=== PATIENT | female | born 1950 | race Caucasian/White ===

== ENCOUNTER 2021-01-04 21:18 | Inpatient (IN) ==
[2021-01-04] MEDS ORDERED: DEXAMETHASONE 10 MG/ML VIAL IV ONE (21:29)
[2021-01-04 22:58] LABS: ABG Methemoglobin 0.3 % (0.4-1.5); Total Hemoglobin 11.9 gm/Dl (13.5-16.5); VBG Base Excess 1 (-2-3); VBG HCO3 23.8 mmol/L; VBG Oxygen Saturation 82.8 %; VBG PH 7.46 U; VBG PO2 54.8 mmHg; VBG Total CO2 24.8 mmol/L
[2021-01-04 23:13] LABS: Basophils # (Auto) 0.07 K/mcL (0.00-0.20); Basophils % (Auto) 0.7 % (0.0-2.0); Eosinophils # (Auto) 0.01 K/mcL (0.00-0.70); Eosinophils % (Auto) 0.1 % (0.0-7.0); Hematocrit 38.9 % (36.0-48.0); Hemoglobin 13.3 g/dL (12.0-15.0); Lymphocytes # (Auto) 1.19 K/mcL (1.50-4.80); Lymphocytes % (Auto) 12.4 % (15.0-49.0); Mean Cell Volume 82.2 fL (80.0-100.0); Mean Corpuscular HGB Conc 34.2 g/dL (31.0-36.0); Mean Platelet Volume 10.5 fL (7.4-10.4); Monocytes # (Auto) 0.46 K/mcL (0.10-0.90); Monocytes % (Auto) 4.8 % (1.0-12.0); Platelet Count 199 K/mcL (140-440); RBC 4.73 M/mcL (4.00-5.20); Red Cell Distribution Width 14.1 % (11.5-14.5); WBC 9.6 K/mcL (4.5-11.0)
[2021-01-04] MEDS ORDERED: MAGNESIUM SULFATE 2 GM/50 ML BAG IV PRN (23:28)
[2021-01-04] MEDS ORDERED: ONDANSETRON 4 MG ODT TABLET SL PRN (23:28)
[2021-01-04] MEDS ORDERED: MELATONIN 3 MG TABLET PO PRN (23:28)
[2021-01-04] MEDS ORDERED: REMDESIVIR 200 MG in 0.9 % SODIUM CHLORIDE 250 ML IV ONE (23:28)
[2021-01-04] MEDS ORDERED: ONDANSETRON 4 MG/2 ML VIAL IV PRN (23:28)
[2021-01-04] MEDS ORDERED: POTASSIUM CHLORIDE 20 MEQ PACKET PO PRN (23:28)
[2021-01-04] MEDS ORDERED: ACETAMINOPHEN 325 MG TABLET PO PRN (23:28)
[2021-01-04] MEDS ORDERED: POLYETHYLENE GLYCOL 3350 17 GM PACKET PO PRN (23:28)
[2021-01-04] MEDS ORDERED: POTASSIUM CHLORIDE 40 MEQ in DEXTROSE 5% IN WATER 500 ML IV PRN (23:28)
[2021-01-04] MEDS ORDERED: BISACODYL 10 MG SUPP.RECT PR PRN (23:28)
--- NOTE | 2021-01-04 23:33 | Internal Med History&Physical ---
HPI History of Present Illness Patient information: Note initiated : 01/04/21 at 11:33 pm Service Date, if different from initiated Date: [] Patient: Francisca Samuel a 70 y/o F admitted on for short of breath weakness. Chief Complaint: Shortness of breath History of present illness: Ms. Samuel is a 70 year old F with history anxiety disorder/DJD/HLD who was diagnosed with Covid a week and a half ago. She continues to deteriorate with increasing exertional dyspnea progressing to dyspnea at rest. She presents to the ER for evaluation initial work-up was consistent with saturation in 30s. Patient was probably started on noninvasive ventilation. Chest imaging consistent with bilateral multifocal infiltrates consistent with Covid pneumonia. Patient was started on remdesivir/dexamethasone and subsequently hospitalist service was consulted. In light of critical nature of illness ICU bed was secured. At the time of my evaluation patient is on BiPAP 100% FiO2. Breathing at 25 pressure settings 16/ 8. She denies history of Covid vaccination. She endorses to fever, fatigue, malaise, weakness and loss of appetite but denies chest pain, vomiting abdominal pain diarrhea. Review of systems 10 point review system was performed and is negative except for 1 discussed above PFSH PFSH All Active Problems Hypoxia (Acute) COVID-19 (Acute) EIC (epidermal inclusion cyst) (Chronic) Hyperlipidemia (Chronic) Hypothyroid (Chronic) Osteoporosis (Chronic) Hyperplastic colon polyp (Chronic) GERD (gastroesophageal reflux disease) (Chronic) Depression with anxiety (Chronic) Multiple sclerosis (Chronic) Medical History Actinic keratosis Depression with anxiety GERD (gastroesophageal reflux disease) Hyperlipidemia Hyperlipidemia Hyperplastic colon polyp 2012 colonoscopy Hypothyroid Hypothyroidism (acquired) Multiple sclerosis Multiple sclerosis Osteoporosis on fosamax, last DEXA 2016 Surgical History No pertinent past surgical history Family History Mother Malignant neoplasm of breast Father Family history of Hodgkin's lymphoma Diabetes mellitus Lymphoma Other Malignant neoplasm of colon Social History (Updated 02/18/18 @ 10:25 by Sabino Johnston MD) 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 Home Medications and Allergies Home Medications Medication Instructions Recorded Confirmed Type cholecalciferol (vitamin D3) 50 2,000 unit PO BID #180 cap 09/23/16 01/05/21 Rx mcg (2,000 unit) capsule alendronate 70 mg tablet 70 mg PO QWEEK #12 tab 12/04/17 01/05/21 Rx levothyroxine 75 mcg tablet 75 mcg PO QDAY #90 tab 12/04/17 01/05/21 Rx omeprazole 20 mg capsule,delayed 20 mg PO QDAY #90 cap 12/04/17 01/05/21 Rx release venlafaxine 75 mg tablet 75 mg PO QDAY #90 tab 12/17/17 01/05/21 Rx atorvastatin 80 mg PO QDAY 01/05/21 01/05/21 History hydrocodone-chlorpheniramine 5 ml PO BID 01/05/21 01/05/21 History Allergies Allergy/AdvReac Type Severity Reaction Status Date / Time No Known Drug Allergies Allergy Verified 01/05/21 00:53 EXAM Constitutional Vitals: Temp Pulse Resp BP Pulse Ox 97.1 F 79 25 H 135/82 93 01/04/21 21:20 01/04/21 23:11 01/04/21 23:11 01/04/21 23:01 01/04/21 23:11 Anxious labored on BiPAP Head normocephalic Oral cavity moist No ear nose discharge Eye movement symmetrical Neck supple no lymphadenopathy S1-S2 regular Tachypneic Nondistended nontender abdomen Lower extremity no cyanosis clubbing or joint swelling Skin no suspicious lesion Psych anxious, no hallucination Neuro normal higher function DATA Data Completed and Pending Labs: Labs from last 24 hours 01/04/21 01/04/21 01/04/21 22:40 21:51 21:31 WBC RBC Hgb Hct MCV MCH MCHC RDW Plt Count MPV Neut % (Auto) Lymph % (Auto) [place] % (Auto) Eos % (Auto) Baso % (Auto) Lymph # (Auto) [place] # (Auto) Eos # (Auto) Baso # (Auto) Absolute Neutrophils PT TNP INR TNP APTT TNP ABG Methemoglobin 0.3 L VBG pH 7.46 VBG pCO2 34.0 VBG pO2 54.8 VBG HCO3 23.8 VBG Total CO2 24.8 VBG O2 Saturation 82.8 VBG Base Excess 1 VBG Lactic Acid 1.1 Carboxyhemoglobin 4.7 H Total Hemoglobin 11.9 L Sodium Potassium Chloride Carbon Dioxide Anion Gap BUN Creatinine GFR Calculation Glucose Calcium Total Bilirubin AST ALT Alkaline Phosphatase Total Protein Albumin Globulin Albumin/Globulin Ratio 01/04/21 01/04/21 21:31 21:31 WBC 9.6 RBC 4.73 Hgb 13.3 Hct 38.9 MCV 82.2 MCH 28.1 MCHC 34.2 RDW 14.1 Plt Count 199 MPV 10.5 H Neut % (Auto) 82.0 H Lymph % (Auto) 12.4 L [place] % (Auto) 4.8 Eos % (Auto) 0.1 Baso % (Auto) 0.7 Lymph # (Auto) 1.19 L [place] # (Auto) 0.46 Eos # (Auto) 0.01 Baso # (Auto) 0.07 Absolute Neutrophils 7.87 PT INR APTT ABG Methemoglobin VBG pH VBG pCO2 VBG pO2 VBG HCO3 VBG Total CO2 VBG O2 Saturation VBG Base Excess VBG Lactic Acid Carboxyhemoglobin Total Hemoglobin Sodium Pending Potassium Pending Chloride Pending Carbon Dioxide Pending Anion Gap Pending BUN Pending Creatinine Pending GFR Calculation Pending Glucose Pending Calcium Pending Total Bilirubin Pending AST Pending ALT Pending Alkaline Phosphatase Pending Total Protein Pending Albumin Pending Globulin Pending Albumin/Globulin Ratio Pending A/P Narrative A/P Narrative: * COVID-19 bilateral multifocal pneumonia-transfer to ICU , [place] 2 score 18 mandating ICU admission/initiate remdesivir/dexamethasone, empiric antibiotic, thrombosis prophylaxis/coag and inflammatory markers, maintain COVID-19 precautions. Initiate prone ventilation * Acute hypoxic respiratory failure secondary to Covid pneumonia. Continue noninvasive mechanical ventilation and intubate if continues to deteriorate. Serial chest imaging/ABG/inflammatory markers * HLD * Hypothyroid * Anxiety disorder * Prophylaxis twice daily Lovenox Plan * Inpatient ICU admission * Noninvasive mechanical ventilation * Serial imaging/ABG/coag inflammatory markers * Remdesivir/dexamethasone/empiric antibiotics/thrombosis prophylaxis * Interleukin-6 levels * Interleukin-6 inhibitor if available * Pre-existing medical condition management on home meds * Directed therapies/nutrition support/early mobilization Time Spent With Patient Time: Critical care time spent on management of hypoxic respiratory failure/evaluation of imaging/blood gas/noninvasive mechanical ventilation management in excess of 40 minutes in addition to time spent on history and physical
--- NOTE | 2021-01-04 23:37 | Emergency Department Note ---
HPI General Chief complaint: Shortness of Breath/Dyspnea Stated complaint: short of breath weakness Time Seen by Provider: 01/04/21 21:27 Source: patient Mode of arrival: wheelchair Limitations: no limitations History of Present Illness HPI Narrative: Narrative: Patient is a 70-year-old female who presented with chief complaint of Covid. Patient came in for worsening shortness of breath after she had been diagnosed with Covid. Is been approximately 10 days since symptom onset. Upon arrival, patient was found to be in the 30s for her pulse ox with increased respirations. She was immediately brought back to her room, PPE was donned by the staff, and further evaluation was started. She was initially placed on nonrebreather which did improve her oxygenation into the 70s to 80s. She did have improvement of her shortness of breath with that, however after approximately 15 minutes it did not significantly improve more so we transitioned her to noninvasive ventilation. Patient has tolerated this well, her oxygenation is now set in the mid 90s and her respirations have improved. She overall is very comfortable appearing. She states she just felt more shortness of breath and weak over the last week. She otherwise denies no significant symptoms such as headache, chest pain, nausea, vomiting, abdominal pain, changes in bowel movements or urinary symptoms Related Data Home Medications Medication Instructions Recorded Confirmed glatiramer 40 mg/mL subcutaneous 40 mg SUB-Q 3XW 10/03/15 02/18/18 syringe Previous Rx's Medication Instructions Recorded cholecalciferol (vitamin D3) 50 2,000 unit PO BID #180 cap 09/23/16 mcg (2,000 unit) capsule alendronate 70 mg tablet 70 mg PO QWEEK #12 tab 12/04/17 levothyroxine 75 mcg tablet 75 mcg PO QDAY #90 tab 12/04/17 omeprazole 20 mg capsule,delayed 20 mg PO QDAY #90 cap 12/04/17 release venlafaxine 75 mg tablet 75 mg PO QDAY #90 tab 12/17/17 pravastatin 80 mg tablet 80 mg PO QHS #90 tab 03/03/18 Allergies Allergy/AdvReac Type Severity Reaction Status Date / Time No Known Drug Allergies Allergy Verified 02/18/18 09:21 Review of Systems ROS ROS Narrative: Narrative: All systems ED: reviewed and negative except as stated. PFSH Narrative Patient History Narrative: Narrative: Medical/Surgical/Family History All Active Problems Hypoxia (Acute) COVID-19 (Acute) EIC (epidermal inclusion cyst) (Chronic) Hyperlipidemia (Chronic) Hypothyroid (Chronic) Osteoporosis (Chronic) Hyperplastic colon polyp (Chronic) GERD (gastroesophageal reflux disease) (Chronic) Depression with anxiety (Chronic) Multiple sclerosis (Chronic) Medical History Actinic keratosis Depression with anxiety GERD (gastroesophageal reflux disease) Hyperlipidemia Hyperlipidemia Hyperplastic colon polyp 2012 colonoscopy Hypothyroid Hypothyroidism (acquired) Multiple sclerosis Multiple sclerosis Osteoporosis on fosamax, last DEXA 2016 Surgical History No pertinent past surgical history Family History Mother Malignant neoplasm of breast Father Family history of Hodgkin's lymphoma Diabetes mellitus Lymphoma Other Malignant neoplasm of colon Social History Smoking Status: Never smoker Exam Narrative Narrative: Narrative: Patient is resting in the bed, able to answer questions appropriately. She has some moderate conversational dyspnea, but otherwise is well-appearing. She does not appear in discomfort. General Limitations: no limitations Head Head: Present atraumatic and normocephalic Eye Eye: Present normal appearance, PERRL and EOMI; Absent scleral icterus and conjunctival injection ENT ENT: Present normal oropharynx and mucous membranes moist Neck Neck: Present full ROM and trachea midline; Absent tenderness and lymphadenopathy Chest Chest: Present symmetric chest wall rise Respiratory Respiratory: Present normal lung sounds bilaterally, respiratory distress, rales/crackles and accessory muscle use; Absent wheezes and stridor Cardiovascular Cardiovascular: Present regular rate and normal rhythm; Absent systolic murmur and diastolic murmur [place] Abdominal: Present soft; Absent tenderness, guarding, rebound, rigidity and mass Extremities Extremities: Absent pedal edema, pretibial edema and calf tenderness Back Back: Absent CVA tenderness (R), CVA tenderness (L) and spinous process tenderness Neurological Neurological: Present alert and oriented X3 Psychiatric Psychiatric: Present normal affect and normal mood Skin Skin: Present warm (WNL) and dry Course Vital Signs Vital signs: Vital Signs Temperature 97.1 F 01/04/21 21:20 Pulse Rate 87 01/04/21 21:20 Respiratory Rate 30 H 01/04/21 21:20 Blood Pressure 140/60 01/04/21 21:20 Pulse Oximetry (%) 40 L 01/04/21 21:20 Temperature 97.1 F 01/04/21 21:20 Pulse Rate 79 01/04/21 23:11 Respiratory Rate 25 H 01/04/21 23:11 Blood Pressure 135/82 01/04/21 23:01 Pulse Oximetry (%) 93 01/04/21 23:11 [facility] MDM Narrative Medical decision making narrative: Narrative: Patient presented with history of physical exam consistent with hypoxia secondary to COVID-19. She does not appear to be septic at this time, as her vital signs are stable and heart rate is within normal limits. After she was placed on noninvasive ventilation her dyspnea has improved significantly. Patient's oxygenation is now in the mid 90s, and her respirations are slowly improving. Chest x-ray is consistent with Covid, and the rest of her work-up here is for the most part unremarkable. VBG was unimpressive in terms of normal findings for her blood gases. With her symptoms improving, I do feel that she does not require intubation at this time, and plan will be to admit her to the ICU for further monitoring and work-up. She was given Decadron here in the emergency department, and in discussion with the hospitalist we will start remdesivir as well. Patient is agreeable to the plan at this time Lab Data Result diagrams: 01/04/21 21:31 01/04/21 21:31 Labs: Lab Results 01/04/21 01/04/21 01/04/21 Range/Units 21:31 21:31 21:51 WBC 9.6 (4.5-11.0) K/mcL RBC 4.73 (4.00-5.20) M/mcL Hgb 13.3 (12.0-15.0) g/dL Hct 38.9 (36.0-48.0) % MCV 82.2 (80.0-100.0) fL MCH 28.1 (26.0-34.0) pg MCHC 34.2 (31.0-36.0) g/dL RDW 14.1 (11.5-14.5) % Plt Count 199 (140-440) K/mcL MPV 10.5 H (7.4-10.4) fL Neut % (Auto) 82.0 H (38.0-78.0) % Lymph % (Auto) 12.4 L (15.0-49.0) % [place] % (Auto) 4.8 (1.0-12.0) % Eos % (Auto) 0.1 (0.0-7.0) % Baso % (Auto) 0.7 (0.0-2.0) % Lymph # (Auto) 1.19 L (1.50-4.80) K/mcL [place] # (Auto) 0.46 (0.10-0.90) K/mcL Eos # (Auto) 0.01 (0.00-0.70) K/mcL Baso # (Auto) 0.07 (0.00-0.20) K/mcL Absolute Neutrophils 7.87 (1.80-8.00) K/mcL PT TNP INR TNP APTT TNP ABG Methemoglobin (0.4-1.5) % VBG pH U VBG pCO2 mmHg VBG pO2 mmHg VBG HCO3 mmol/L VBG Total CO2 mmol/L VBG O2 Saturation % VBG Base Excess (-2-3) VBG Lactic Acid 1.1 (0.5-2.0) mmol/L Carboxyhemoglobin (0.0-1.5) % THgb Total Hemoglobin (13.5-16.5) gm/Dl 01/04/21 Range/Units 22:40 WBC (4.5-11.0) K/mcL RBC (4.00-5.20) M/mcL Hgb (12.0-15.0) g/dL Hct (36.0-48.0) % MCV (80.0-100.0) fL MCH (26.0-34.0) pg MCHC (31.0-36.0) g/dL RDW (11.5-14.5) % Plt Count (140-440) K/mcL MPV (7.4-10.4) fL Neut % (Auto) (38.0-78.0) % Lymph % (Auto) (15.0-49.0) % [place] % (Auto) (1.0-12.0) % Eos % (Auto) (0.0-7.0) % Baso % (Auto) (0.0-2.0) % Lymph # (Auto) (1.50-4.80) K/mcL [place] # (Auto) (0.10-0.90) K/mcL Eos # (Auto) (0.00-0.70) K/mcL Baso # (Auto) (0.00-0.20) K/mcL Absolute Neutrophils (1.80-8.00) K/mcL PT INR APTT ABG Methemoglobin 0.3 L (0.4-1.5) % VBG pH 7.46 U VBG pCO2 34.0 mmHg VBG pO2 54.8 mmHg VBG HCO3 23.8 mmol/L VBG Total CO2 24.8 mmol/L VBG O2 Saturation 82.8 % VBG Base Excess 1 (-2-3) VBG Lactic Acid (0.5-2.0) mmol/L Carboxyhemoglobin 4.7 H (0.0-1.5) % THgb Total Hemoglobin 11.9 L (13.5-16.5) gm/Dl CC TIME Critical Care Time Critical Care Time: Yes Attestation: Approximately 65 minutes of critical care time was used in order to assess and manage the high probability of imminent or life threatening deterioration to hypoxia which required my highest level of preparedness and interventions with frequent patient assessments. This time is excluding time spent on separately billable procedures. Discharge Plan Patient/Caregiver Discharge Instructions Pt seen by MEDICAL SCREENER/PA only: No Clinical Impression: Hypoxia, COVID-19 Instructions: COVID-19, Hypoxia (ED) Patient Disposition: Xfer As Inpt ([facility]) Follow up with: Sabino Johnston MD [Primary Care Provider] - Prescriptions: No Action cholecalciferol (vitamin D3) 2,000 unit capsule 2,000 unit PO BID Qty: 180 RF: 3 alendronate [Fosamax] 70 mg tablet 70 mg PO QWEEK Qty: 12 RF: 3 levothyroxine 75 mcg tablet 75 mcg PO QDAY Qty: 90 RF: 3 omeprazole 20 mg capsule,delayed release(DR/EC) 20 mg PO QDAY Qty: 90 RF: 3 venlafaxine 75 mg tablet 75 mg PO QDAY Qty: 90 RF: 3 pravastatin 80 mg tablet 80 mg PO QHS Qty: 90 RF: 3 glatiramer [Copaxone] 40 mg/mL syringe 40 mg SUB-Q 3XW RF: 0
[2021-01-04 23:46] LABS: ALT/SGPT 145 U/L (<40); AST/SGOT 191 U/L (<32); Albumin 3.3 gm/dL (3.2-5.2); Albumin/Globulin Ratio 1.4 (1.0-2.3); Alkaline Phosphatase 98 U/L (39-117); Bilirubin,Total 0.4 mg/dL (0.1-1.0); Blood Urea Nitrogen 12 mg/dL (8-23); Calcium 8.7 mg/dL (8.6-10.4); Carbon Dioxide 23 mmol/L (22-30); Chloride 86 mmol/L (96-108); Globulin 2.4 gm/dL (2.2-3.7); Glomerular Filtration Rate 93; Glucose 105 mg/dL (70-105)
[2021-01-05 00:17] LABS: Partial Thromboplastin Time 37.7 sec (20.0-37.0); Prothrombin Time 13.7 sec (11.9-14.5)
[2021-01-05] MEDS ORDERED: cefTRIAXone 1 GM VIAL ONE (00:49)
[2021-01-05] MEDS: AZITHROMYCIN 500 MG in DEXTROSE 5% IN WATER 250 ML IV SCH ×2 (01:03→21:51)
[2021-01-05] MEDS: cefTRIAXone 2 GM in DEXTROSE 5% IN WATER 50 ML IV SCH ×2 (01:05→14:59)
[2021-01-05] MEDS ORDERED: LORazepam 2 MG/ML VIAL ONE (01:06)
[2021-01-05] MEDS: LORazepam 2 MG/ML VIAL IV PRN (01:16)
[2021-01-05] MEDS: REMDESIVIR 100 MG in 0.9 % SODIUM CHLORIDE 250 ML IV SCH ×3 (01:18→15:47)
--- NOTE | 2021-01-05 01:47 | XRay Report ---
CLINICAL INFORMATION: dyspnea COMPARISON: None. FINDINGS: The heart is mildly enlarged. Mediastinum and pulmonary vessels are unremarkable. Large patchy infiltrates throughout both lungs with relative sparing right upper lobe appreciated. No effusion. IMPRESSION: Patchy multifocal infiltrates both lungs with relative right upper lobe sparing. Findings compatible with pneumonia or, possibly, aspiration Interpreted and Authenticated by: Orlando Childers 01/05/21
[2021-01-05] MEDS ORDERED: IPRATROPIUM/ALBUTEROL 3 ML AMPUL.NEB NEB ONE (07:15)
[2021-01-05] MEDS: 0.9 % SODIUM CHLORIDE 10 ML SYRINGE IV SCH ×3 (08:01→21:52)
[2021-01-05 08:03] LABS: Basophils # (Auto) 0.09 K/mcL (0.00-0.20); Basophils % (Auto) 1.2 % (0.0-2.0); Eosinophils # (Auto) 0 K/mcL (0.00-0.70); Eosinophils % (Auto) 0 % (0.0-7.0); Hematocrit 37.9 % (36.0-48.0); Hemoglobin 12.5 g/dL (12.0-15.0); Lymphocytes # (Auto) 0.59 K/mcL (1.50-4.80); Mean Cell Volume 83.7 fL (80.0-100.0); Monocytes # (Auto) 0.22 K/mcL (0.10-0.90); Platelet Count 184 K/mcL (140-440); RBC 4.53 M/mcL (4.00-5.20); Red Cell Distribution Width 13.9 % (11.5-14.5); WBC 7.4 K/mcL (4.5-11.0)
[2021-01-05] MEDS: DOCUSATE SODIUM 100 MG CAPSULE PO SCH ×2 (08:45→21:51)
[2021-01-05] MEDS ORDERED: FUROSEMIDE 20 MG/2 ML VIAL IV ONE (08:56)
[2021-01-05] MEDS ORDERED: DEXAMETHASONE 4 MG TABLET PO SCH (09:00)
[2021-01-05] MEDS ORDERED: ENOXAPARIN 40 MG/0.4 ML SYRINGE SQ SCH (09:00)
[2021-01-05] MEDS: ENOXAPARIN 40 MG/0.4 ML SYRINGE SQ SCH ×2 (09:09→21:51)
[2021-01-05] MEDS: DEXAMETHASONE 10 MG/ML VIAL IV SCH (09:09)
[2021-01-05 09:23] LABS: ALT/SGPT 139 U/L (<40); AST/SGOT 163 U/L (<32); Albumin 3.4 gm/dL (3.2-5.2); Albumin/Globulin Ratio 1.2 (1.0-2.3); Alkaline Phosphatase 99 U/L (39-117); Bilirubin,Direct < 0.2 mg/dL (0-0.3); Bilirubin,Total 0.3 mg/dL (0.1-1.0); Blood Urea Nitrogen 10 mg/dL (8-23); Calcium 8.9 mg/dL (8.6-10.4); Carbon Dioxide 24 mmol/L (22-30); Chloride 91 mmol/L (96-108); Globulin 2.9 gm/dL (2.2-3.7); Glomerular Filtration Rate 93; Glucose 168 mg/dL (70-105); Lactate Dehydrogenase 655 U/L (135-225); Phosphorous 4.4 mg/dL (2.5-4.5); Triglycerides 134 mg/dL (<150); Uric Acid 5.1 mg/dL (2.5-8.0)
[2021-01-05 09:35] LABS: Neutrophils % (Auto) 87.8 % (38.0-78.0)
[2021-01-05 09:51] LABS: Erythrocyte Sedimentation Rate 37 mm/hr (0-20)
[2021-01-05] MEDS: IPRATROPIUM/ALBUTEROL 3 ML AMPUL.NEB NEB PRN ×2 (10:59→14:59)
--- NOTE | 2021-01-05 11:14 | Internal Med Progress Note ---
SUBJECTIVE Subjective Patient information: Note initiated : 01/05/21 at 11:11 am Service Date, if different from initiated Date: [] Patient: Francisca Samuel a 70 y/o F admitted on 01/05/21 for short of breath weakness. Chief Complaint: [] Interval history: Ms. Samuel is a 70 year old F with history anxiety disorder/DJD/HLD who was diagnosed with Covid a week and a half ago. She continues to deteriorate with increasing exertional dyspnea progressing to dyspnea at rest. She presents to the ER for evaluation initial work-up was consistent with saturation in 30s. Patient was probably started on noninvasive ventilation. Chest imaging consistent with bilateral multifocal infiltrates consistent with Covid pneumonia. Patient was started on remdesivir/dexamethasone and subsequently hospitalist service was consulted. In light of critical nature of illness ICU bed was secured. At the time of my evaluation patient is on BiPAP 100% FiO2. Breathing at 25 pressure settings 16/ 8. She denies history of Covid vaccination. She endorses to fever, fatigue, malaise, weakness and loss of appetite but denies chest pain, vomiting abdominal pain diarrhea. 01/05-patient currently on 80% FiO2 BiPAP 18/10, ABG 7.5 10/01/48 on 80% FiO2 BiPAP. Remains critically ill and high risk mortality. Check interleukin- 6/Tocilizumab if available, continue prone ventilation . Sodium improved from 1 22-129, ferritin 1351, elevated LFTs, CRP 13, procalcitonin 0.19. Continue prone ventilation/intubated if worsening hypoxia/developing ARDS. Start di uresis. Constitutional Vitals: Alert orientedVital Signs Temp Pulse Resp BP Pulse Ox 100.5 F H 81 27 H 142/71 93 01/05/21 10:00 01/05/21 10:00 01/05/21 10:00 01/05/21 10:00 01/05/21 10:00 Period Temp Pulse Resp BP Sys/Kinsey Pulse Ox Last 24 Hr 97.1 F-100.5 F 65-87 15-31 117-151/60-100 40-100 Intake and Output 01/04/21 01/05/21 01/05/21 21:59 05:59 13:59 Intake Total 550 Output Total 1050 340 Balance -500 -340 Weight 99.337 kg 95.617 kg Labored breathing Very anxious On noninvasive ventilation Tachypneic Intake & Output: Intake & Output 01/04/21 01/05/21 01/05/21 21:59 05:59 13:59 Intake Total 550 Output Total 1050 340 Balance -500 -340 Weight 99.337 kg 95.617 kg Intake: IV 550 Zithromax 500 mg In Dextrose 5% 250 in Water 250 ml @ 250 mls/hr IV Q24H [facility] Rx#:[id number] Veklury 200 mg In Sodium 250 Chloride 0.9% 250 ml @ 500 mls/ hr IV ONCE ONE Rx#:[id number] Rocephin 2 gm In Dextrose 5% in 50 Water 50 ml @ 100 mls/hr IV Q24H [facility] Rx#:[id number] Output: Urine Catheter Amount 340 Uretheral (Raya) 340 Void Amount 1050 Other: Urine Appearance Clear Uretheral (Raya) Clear Urine Color Bright Yellow Uretheral (Raya) Bright Yellow Urine Odor Uretheral (Raya) Normal OBJ DATA Labs CBC & Chem 7: 01/05/21 06:32 01/05/21 06:32 Labs: Abnormal Lab Results 01/05/21 01/05/21 01/05/21 06:32 06:32 06:32 MPV Neut % (Auto) 87.8 H Lymph % (Auto) 8.0 L Lymph # (Auto) 0.59 L ESR 37 H APTT ABG Methemoglobin Carboxyhemoglobin Total Hemoglobin Sodium 129 L Chloride 91 L Glucose 168 H Ferritin 1351.0 H GGT 191 H AST 163 H ALT 139 H Lactate Dehydrogenase 655 H C-Reactive Protein 13.00 H Total Protein Procalcitonin 0.19 H 01/04/21 01/04/21 01/04/21 23:23 22:40 21:31 MPV Neut % (Auto) Lymph % (Auto) Lymph # (Auto) ESR APTT 37.7 H ABG Methemoglobin 0.3 L Carboxyhemoglobin 4.7 H Total Hemoglobin 11.9 L Sodium 122 L Chloride 86 L Glucose Ferritin GGT AST 191 H ALT 145 H Lactate Dehydrogenase C-Reactive Protein Total Protein 5.7 L Procalcitonin 01/04/21 21:31 MPV 10.5 H Neut % (Auto) 82.0 H Lymph % (Auto) 12.4 L Lymph # (Auto) 1.19 L ESR APTT ABG Methemoglobin Carboxyhemoglobin Total Hemoglobin Sodium Chloride Glucose Ferritin GGT AST ALT Lactate Dehydrogenase C-Reactive Protein Total Protein Procalcitonin Meds: Medications Acetaminophen (Acetaminophen 325 Mg Tablet) 650 mg PO Q4-6HP PRN; Protocol PRN Reason: Per Pain Protocol/Fever > 101 Albuterol/Ipratropium (Ipratropium/Albuterol 3 Ml Ampul.Neb) 3 ml NEB Q4HP PRN PRN Reason: Shortness Of Breath Last Admin: 01/05/21 10:59 Dose: 3 ml Documented by: Bisacodyl (Bisacodyl 10 Mg Supp.Rect) 10 mg [place] Q2-3DAYS PRN PRN Reason: Constipation Dexamethasone (Dexamethasone 10 Mg/Ml Vial) 6 mg IV DAILY [facility] Last Admin: 01/05/21 09:09 Dose: 6 mg Documented by: Docusate Sodium (Docusate Sodium 100 Mg Capsule) 100 mg PO BID [facility] Last Admin: 01/05/21 08:45 Dose: Not Given Documented by: Enoxaparin Sodium (Enoxaparin 40 Mg/0.4 Ml Syringe) 40 mg SQ BID [facility] Last Admin: 01/05/21 09:09 Dose: 40 mg Documented by: Azithromycin 500 mg/ Dextrose 250 mls @ 250 mls/hr IV Q24H [facility]; Protocol Stop: 01/07/21 00:29 Last Infusion: 01/05/21 02:28 Dose: Infused Documented by: Potassium Chloride 40 meq/ (Dextrose) 520 mls @ 130 mls/hr IV UD PRN PRN Reason: K+ = or < 3.5 Acetaminophen (Ofirmev) 650 mg in 65 mls @ 130 mls/hr IV Q6HP PRN; Protocol PRN Reason: Per Pain Protocol/Fever > 101 Magnesium Sulfate (Magnesium Sulfate) 2 gm in 50 mls @ 50 mls/hr IV UD PRN PRN Reason: MG = or < 1.7 Ceftriaxone Sodium 2 gm/ (Dextrose) 50 mls @ 100 mls/hr IV Q24H [facility]; Protocol Last Infusion: 01/05/21 01:54 Dose: Infused Documented by: REMDESIVIR 100 mg/ Sodium (Chloride) 250 mls @ 500 mls/hr IV Q24H [facility] Stop: 01/08/21 16:29 Lorazepam (Lorazepam 2 Mg/Ml Vial) 0.5 mg IV Q4HP PRN PRN Reason: ANXIETY/SEDATION Last Admin: 01/05/21 01:16 Dose: 0.5 mg Documented by: Melatonin (Melatonin 3 Mg Tablet) 3 mg PO HSP PRN PRN Reason: Insomnia Ondansetron HCl (Ondansetron 4 Mg Odt Tablet) 4 mg SL Q4-6HP PRN; Protocol PRN Reason: Nausea And Vomiting Ondansetron HCl (Ondansetron 4 Mg/2 Ml Vial) 4 mg IV Q4-6HP PRN; Protocol PRN Reason: Nausea And Vomiting Polyethylene Glycol (Polyethylene Glycol 3350 17 Gm Packet) 17 gm PO DAILYP PRN PRN Reason: Constipation Potassium Chloride (Potassium Chloride 20 Meq Packet) 40 meq PO DAILYP PRN PRN Reason: K+ < 3.5 Senna/Docusate Sodium (Sennosides/Docusate Sodium 1 Tab Tablet) 1 tab PO HS YESSY Sodium Chloride (0.9 % Sodium Chloride 10 Ml Syringe) 10 ml IV Q8 YESSY Last Admin: 01/05/21 08:01 Dose: Not Given Documented by: ABG Interpretation ABG results: 01/04/21 22:40 ABG Methemoglobin 0.3 L VBG pH 7.46 VBG pCO2 34.0 VBG pO2 54.8 VBG HCO3 23.8 VBG Total CO2 24.8 VBG O2 Saturation 82.8 VBG Base Excess 1 A/P Narrative A/P Narrative: * COVID-19 bilateral multifocal pneumonia-transfer to ICU , [place] 2 score 18 mandating ICU admission/initiate remdesivir/dexamethasone, empiric antibiotic, thrombosis prophylaxis/coag and inflammatory markers, maintain COVID-19 precautions. Initiate prone ventilation * Acute hypoxic respiratory failure secondary to Covid pneumonia/early ARDS. Continue noninvasive mechanical ventilation on 80% FiO2, intubate if continues to deteriorate. Serial chest imaging/ABG/inflammatory markers * HLD * Hypothyroid * Anxiety disorder * Prophylaxis twice daily Lovenox Plan * Continue ICU care * Noninvasive mechanical ventilation titration * Prone ventilation/diuresis * Serial imaging/ABG * Tocilizumab if available * Remdesivir/dexamethasone/empiric antibiotics/thrombosis prophylaxis * Pre-existing medical condition management on home meds * Directed therapies/nutrition support/early mobilization Time Spent With Patient Time: Critical care time spent in excess 105 minutes over the course of the day for management of Covid pneumonia with hypoxic respiratory failure/ARDS
[2021-01-05] MEDS: ACETAMINOPHEN 650 MG/65 ML BAG IV PRN ×2 (11:19→23:02)
[2021-01-05] MEDS: SENNOSIDES/DOCUSATE SODIUM 1 TAB TABLET PO SCH (21:52)
[2021-01-06] MEDS: 0.9 % SODIUM CHLORIDE 10 ML SYRINGE IV SCH ×3 (05:12→22:36)
[2021-01-06] MEDS: IPRATROPIUM/ALBUTEROL 3 ML AMPUL.NEB NEB PRN ×4 (06:59→19:32)
[2021-01-06 07:08] LABS: ALT/SGPT 113 U/L (<40); AST/SGOT 123 U/L (<32); Albumin 3.2 gm/dL (3.2-5.2); Albumin/Globulin Ratio 1.1 (1.0-2.3); Alkaline Phosphatase 95 U/L (39-117); Bilirubin,Direct < 0.2 mg/dL (0-0.3); Bilirubin,Total 0.3 mg/dL (0.1-1.0); Blood Urea Nitrogen 14 mg/dL (8-23); Calcium 8.6 mg/dL (8.6-10.4); Carbon Dioxide 27 mmol/L (22-30); Chloride 97 mmol/L (96-108); Globulin 2.9 gm/dL (2.2-3.7); Glomerular Filtration Rate 93; Glucose 124 mg/dL (70-105); Lactate Dehydrogenase 816 U/L (135-225); Phosphorous 3.1 mg/dL (2.5-4.5); Triglycerides 154 mg/dL (<150)
[2021-01-06] MEDS: LORazepam 2 MG/ML VIAL IV PRN ×4 (07:23→21:32)
[2021-01-06] MEDS ORDERED: FUROSEMIDE 20 MG/2 ML VIAL IV ONE (09:04)
[2021-01-06 09:21] LABS: Basophils # (Auto) 0.03 K/mcL (0.00-0.20); Basophils % (Auto) 0.2 % (0.0-2.0); Eosinophils # (Auto) 0 K/mcL (0.00-0.70); Eosinophils % (Auto) 0 % (0.0-7.0); Hematocrit 36.1 % (36.0-48.0); Lymphocytes # (Auto) 0.84 K/mcL (1.50-4.80); Lymphocytes % (Auto) 6.4 % (15.0-49.0); Mean Cell Volume 83.8 fL (80.0-100.0); Mean Corpuscular HGB Conc 33.2 g/dL (31.0-36.0); Mean Platelet Volume 10.1 fL (7.4-10.4); Monocytes # (Auto) 0.68 K/mcL (0.10-0.90); Monocytes % (Auto) 5.1 % (1.0-12.0); Neutrophils % (Auto) 88.3 % (38.0-78.0); Platelet Count 258 K/mcL (140-440); RBC 4.31 M/mcL (4.00-5.20); Red Cell Distribution Width 14.3 % (11.5-14.5); WBC 13.2 K/mcL (4.5-11.0)
[2021-01-06] MEDS: DEXAMETHASONE 10 MG/ML VIAL IV SCH (09:40)
[2021-01-06] MEDS: ENOXAPARIN 40 MG/0.4 ML SYRINGE SQ SCH ×2 (09:40→20:44)
[2021-01-06] MEDS: DOCUSATE SODIUM 100 MG CAPSULE PO SCH ×2 (09:41→20:43)
[2021-01-06] MEDS: cefTRIAXone 2 GM in DEXTROSE 5% IN WATER 50 ML IV SCH (09:42)
--- NOTE | 2021-01-06 11:34 | Internal Med Progress Note ---
SUBJECTIVE Subjective Patient information: Note initiated : 01/06/21 at 11:30 am Service Date, if different from initiated Date: [] Patient: Francisca Samuel a 70 y/o F admitted on 01/05/21 for short of breath weakness. Chief Complaint: [] Interval history: Ms. Samuel is a 70 year old F with history anxiety disorder/DJD/HLD who was diagnosed with Covid a week and a half ago. She continues to deteriorate with increasing exertional dyspnea progressing to dyspnea at rest. She presents to the ER for evaluation initial work-up was consistent with saturation in 30s. Patient was probably started on noninvasive ventilation. Chest imaging consistent with bilateral multifocal infiltrates consistent with Covid pneumonia. Patient was started on remdesivir/dexamethasone and subsequently hospitalist service was consulted. In light of critical nature of illness ICU bed was secured. At the time of my evaluation patient is on BiPAP 100% FiO2. Breathing at 25 pressure settings / 8. She denies history of Covid vaccination. She endorses to fever, fatigue, malaise, weakness and loss of appetite but denies chest pain, vomiting abdominal pain diarrhea. 01/05-patient currently on 80% FiO2 BiPAP 18/10, ABG 7.5 10/01/48 on 80% FiO2 BiPAP. Remains critically ill and high risk mortality. Check interleukin- 6/Tocilizumab if available, continue prone ventilation . Sodium improved from 1 22-129, ferritin 1351, elevated LFTs, CRP 13, procalcitonin 0.19. Continue prone ventilation/intubated if worsening hypoxia/developing ARDS. Start di uresis. 01/06-patient remains critically ill however clinical improvement noted now 1 7 to 80% FiO2 on BiPAP with frequent prone ventilation. White count downtrending. Currently on remdesivir/dexamethasone, gentle diuresis to improve lung compliance. This morning was awake and nondistressed. Understands treatment plan. Discussed at length with patient's Nicolas on telephone patient's clinical status and further treatment plan. Interval chest imaging improved since previous day, elevated lactate dehydrogenase, CRP, ferritin. Continue close monitoring in ICU Constitutional Vitals: Vital Signs Temp Pulse Resp BP Pulse Ox 99.5 F H 83 23 H 124/74 94 01/06/21 11:01 01/06/21 11:17 01/06/21 11:17 01/06/21 11:01 01/06/21 11:17 Period Temp Pulse Resp BP Sys/Kinsey Pulse Ox Last 24 Hr 98.9 F-101.1 F 61-92 16-30 52-147/40-93 86-100 Intake and Output 01/05/21 01/06/21 01/06/21 21:59 05:59 13:59 Intake Total 300 515 50 Output Total 350 800 260 Balance -50 -285 -210 Weight 92.986 kg Alert and respond to commands On BiPAP Telemetry tachypneic but no arrhythmia No lymphedema Intake & Output: Intake & Output 01/05/21 01/06/21 01/06/21 21:59 05:59 13:59 Intake Total 300 515 50 Output Total 350 800 260 Balance -50 -285 -210 Weight 92.986 kg Intake: IV 300 315 50 Zithromax 500 mg In Dextrose 5% 250 in Water 250 ml @ 250 mls/hr IV Q24H YESSY Rx#:[id number] Veklury 100 mg In Sodium 250 Chloride 0.9% 250 ml @ 500 mls/ hr IV Q24H YESSY Rx#:[id number] Rocephin 2 gm In Dextrose 5% in 50 50 Water 50 ml @ 100 mls/hr IV Q24H YESSY Rx#:[id number] Oral 200 Output: Urine Catheter Amount 350 800 260 Other: Urine Appearance Clear Clear Clear Uretheral (Raya) Clear Clear Urine Color Bright Yellow Bright Yellow Bright Yellow Uretheral (Raya) Bright Yellow Bright Yellow Urine Odor Normal Normal OBJ DATA Labs CBC & Chem 7: 01/06/21 05:03 01/06/21 05:03 Labs: Abnormal Lab Results 01/06/21 01/06/21 01/06/21 05:03 05:03 05:03 WBC 13.2 H MPV Neut % (Auto) 88.3 H Lymph % (Auto) 6.4 L Lymph # (Auto) 0.84 L Absolute Neutrophils 11.66 H ESR APTT ABG Methemoglobin Carboxyhemoglobin Total Hemoglobin Sodium Chloride Glucose 124 H Ferritin GGT 176 H AST 123 H ALT 113 H Lactate Dehydrogenase 816 H C-Reactive Protein Total Protein Triglycerides 154 H Procalcitonin 0.13 H 01/05/21 01/05/21 01/05/21 06:32 06:32 06:32 WBC MPV Neut % (Auto) 87.8 H Lymph % (Auto) 8.0 L Lymph # (Auto) 0.59 L Absolute Neutrophils ESR 37 H APTT ABG Methemoglobin Carboxyhemoglobin Total Hemoglobin Sodium 129 L Chloride 91 L Glucose 168 H Ferritin 1351.0 H GGT 191 H AST 163 H ALT 139 H Lactate Dehydrogenase 655 H C-Reactive Protein 13.00 H Total Protein Triglycerides Procalcitonin 0.19 H 01/04/21 01/04/21 01/04/21 23:23 22:40 21:31 WBC MPV Neut % (Auto) Lymph % (Auto) Lymph # (Auto) Absolute Neutrophils ESR APTT 37.7 H ABG Methemoglobin 0.3 L Carboxyhemoglobin 4.7 H Total Hemoglobin 11.9 L Sodium 122 L Chloride 86 L Glucose Ferritin GGT AST 191 H ALT 145 H Lactate Dehydrogenase C-Reactive Protein Total Protein 5.7 L Triglycerides Procalcitonin 01/04/21 21:31 WBC MPV 10.5 H Neut % (Auto) 82.0 H Lymph % (Auto) 12.4 L Lymph # (Auto) 1.19 L Absolute Neutrophils ESR APTT ABG Methemoglobin Carboxyhemoglobin Total Hemoglobin Sodium Chloride Glucose Ferritin GGT AST ALT Lactate Dehydrogenase C-Reactive Protein Total Protein Triglycerides Procalcitonin Meds: Medications Acetaminophen (Acetaminophen 325 Mg Tablet) 650 mg PO Q4-6HP PRN; Protocol PRN Reason: Per Pain Protocol/Fever > 101 Albuterol/Ipratropium (Ipratropium/Albuterol 3 Ml Ampul.Neb) 3 ml NEB Q4HP PRN PRN Reason: Shortness Of Breath Last Admin: 01/06/21 11:16 Dose: 3 ml Documented by: Bisacodyl (Bisacodyl 10 Mg Supp.Rect) 10 mg MO Q2-3DAYS PRN PRN Reason: Constipation Dexamethasone (Dexamethasone 10 Mg/Ml Vial) 6 mg IV DAILY [facility] Last Admin: 01/06/21 09:40 Dose: 6 mg Documented by: Docusate Sodium (Docusate Sodium 100 Mg Capsule) 100 mg PO BID [facility] Last Admin: 01/06/21 09:41 Dose: 100 mg Documented by: Enoxaparin Sodium (Enoxaparin 40 Mg/0.4 Ml Syringe) 40 mg SQ BID [facility] Last Admin: 01/06/21 09:40 Dose: 40 mg Documented by: Azithromycin 500 mg/ Dextrose 250 mls @ 250 mls/hr IV Q24H [facility]; Protocol Stop: 01/07/21 00:29 Last Infusion: 01/05/21 22:55 Dose: Infused Documented by: Potassium Chloride 40 meq/ (Dextrose) 520 mls @ 130 mls/hr IV UD PRN PRN Reason: K+ = or < 3.5 Acetaminophen (Ofirmev) 650 mg in 65 mls @ 130 mls/hr IV Q6HP PRN; Protocol PRN Reason: Per Pain Protocol/Fever > 101 Last Infusion: 01/06/21 00:00 Dose: Infused Documented by: Magnesium Sulfate (Magnesium Sulfate) 2 gm in 50 mls @ 50 mls/hr IV UD PRN PRN Reason: MG = or < 1.7 Ceftriaxone Sodium 2 gm/ (Dextrose) 50 mls @ 100 mls/hr IV Q24H [facility]; Protocol Last Infusion: 01/06/21 10:15 Dose: Infused Documented by: REMDESIVIR 100 mg/ Sodium (Chloride) 250 mls @ 500 mls/hr IV Q24H [facility] Stop: 01/08/21 16:29 Last Infusion: 01/05/21 16:17 Dose: Infused Documented by: Lorazepam (Lorazepam 2 Mg/Ml Vial) 0.5 mg IV Q4HP PRN PRN Reason: ANXIETY/SEDATION Last Admin: 01/06/21 07:23 Dose: 0.5 mg Documented by: Melatonin (Melatonin 3 Mg Tablet) 3 mg PO HSP PRN PRN Reason: Insomnia Ondansetron HCl (Ondansetron 4 Mg Odt Tablet) 4 mg SL Q4-6HP PRN; Protocol PRN Reason: Nausea And Vomiting Ondansetron HCl (Ondansetron 4 Mg/2 Ml Vial) 4 mg IV Q4-6HP PRN; Protocol PRN Reason: Nausea And Vomiting Polyethylene Glycol (Polyethylene Glycol 3350 17 Gm Packet) 17 gm PO DAILYP PRN PRN Reason: Constipation Potassium Chloride (Potassium Chloride 20 Meq Packet) 40 meq PO DAILYP PRN PRN Reason: K+ < 3.5 Senna/Docusate Sodium (Sennosides/Docusate Sodium 1 Tab Tablet) 1 tab PO [facility] Last Admin: 01/05/21 21:52 Dose: Not Given Documented by: Sodium Chloride (0.9 % Sodium Chloride 10 Ml Syringe) 10 ml IV Q8 YESSY Last Admin: 01/06/21 05:12 Dose: 10 ml Documented by: ABG Interpretation ABG results: 01/04/21 22:40 ABG Methemoglobin 0.3 L VBG pH 7.46 VBG pCO2 34.0 VBG pO2 54.8 VBG HCO3 23.8 VBG Total CO2 24.8 VBG O2 Saturation 82.8 VBG Base Excess 1 A/P Narrative A/P Narrative: * COVID-19 bilateral multifocal pneumonia-continue noninvasive ventilation and titrate and wean as tolerated. Currently on 70% FiO2. [place] 2 score 19, continue remdesivir/dexamethasone, empiric antibiotic, thrombosis prophylaxis/coag and inflammatory markers, maintain COVID-19 precautions. Gentle diuresis/prone ventilation to improve lung compliance * Acute hypoxic respiratory failure secondary to Covid pneumonia/early ARDS. Clinically stable now on 70% FiO2. Continue NIV 7-80% FiO2,/ABG continue serial chest imaging * HLD * Hypothyroid * Anxiety disorder * Prophylaxis twice daily Lovenox Plan * Continue ICU care * NIV/prone ventilation/diuresis * Serial imaging/ABG * Remdesivir/dexamethasone/empiric antibiotics/thrombosis prophylaxis * Pre-existing medical condition management on home meds * Directed therapies/nutrition support/early mobilization Time Spent With Patient Time: Total time spent is greater than 50% in coordination of care (as documented) at patient's floor/unit and/or counseling patient: 45 minutes critical care time
--- NOTE | 2021-01-06 12:01 | XRay Report ---
CLINICAL INFORMATION: Follow-up infiltrates COMPARISON: 01/04/2021 FINDINGS: Cardiomediastinal silhouette and pulmonary vessels are unremarkable. Moderate patchy bilateral infiltrates with relative right upper lobe sparing show moderate improved aeration when compared to exam two days ago. IMPRESSION: Improving bilateral infiltrates Interpreted and Authenticated by: Orlando Childers 01/06/21
[2021-01-06] MEDS: ACETAMINOPHEN 650 MG/65 ML BAG IV PRN (13:36)
[2021-01-06] MEDS: REMDESIVIR 100 MG in 0.9 % SODIUM CHLORIDE 250 ML IV SCH (16:41)
[2021-01-06] MEDS: AZITHROMYCIN 500 MG in DEXTROSE 5% IN WATER 250 ML IV SCH (20:43)
[2021-01-06] MEDS: SENNOSIDES/DOCUSATE SODIUM 1 TAB TABLET PO SCH (20:43)
[2021-01-07] MEDS: IPRATROPIUM/ALBUTEROL 3 ML AMPUL.NEB NEB PRN ×3 (00:10→11:06)
[2021-01-07] MEDS: LORazepam 2 MG/ML VIAL IV PRN ×3 (04:15→09:40)
[2021-01-07] MEDS: 0.9 % SODIUM CHLORIDE 10 ML SYRINGE IV SCH ×2 (06:08→15:09)
[2021-01-07 06:22] LABS: Basophils # (Auto) 0.04 K/mcL (0.00-0.20); Basophils % (Auto) 0.3 % (0.0-2.0); Eosinophils # (Auto) 0 K/mcL (0.00-0.70); Eosinophils % (Auto) 0 % (0.0-7.0); Hematocrit 35.2 % (36.0-48.0); Hemoglobin 11.6 g/dL (12.0-15.0); Lymphocytes # (Auto) 0.65 K/mcL (1.50-4.80); Lymphocytes % (Auto) 4.6 % (15.0-49.0); Mean Cell Volume 83.8 fL (80.0-100.0); Mean Platelet Volume 9.5 fL (7.4-10.4); Monocytes # (Auto) 0.41 K/mcL (0.10-0.90); Monocytes % (Auto) 2.9 % (1.0-12.0); Neutrophils % (Auto) 92.2 % (38.0-78.0); Platelet Count 284 K/mcL (140-440); Red Cell Distribution Width 14.3 % (11.5-14.5); WBC 14.2 K/mcL (4.5-11.0)
[2021-01-07 06:39] LABS: ALT/SGPT 86 U/L (<40); AST/SGOT 78 U/L (<32); Albumin 3.2 gm/dL (3.2-5.2); Albumin/Globulin Ratio 1.1 (1.0-2.3); Alkaline Phosphatase 94 U/L (39-117); Bilirubin,Direct < 0.2 mg/dL (0-0.3); Bilirubin,Total 0.4 mg/dL (0.1-1.0); Blood Urea Nitrogen 16 mg/dL (8-23); Calcium 8.4 mg/dL (8.6-10.4); Carbon Dioxide 29 mmol/L (22-30); Chloride 98 mmol/L (96-108); Globulin 2.9 gm/dL (2.2-3.7); Glomerular Filtration Rate 93; Glucose 117 mg/dL (70-105); Lactate Dehydrogenase 796 U/L (135-225); Triglycerides 151 mg/dL (<150); Uric Acid 5.5 mg/dL (2.5-8.0)
[2021-01-07] MEDS: ACETAMINOPHEN 650 MG/65 ML BAG IV PRN (07:26)
[2021-01-07] MEDS: DEXAMETHASONE 10 MG/ML VIAL IV SCH (09:03)
[2021-01-07] MEDS: cefTRIAXone 2 GM in DEXTROSE 5% IN WATER 50 ML IV SCH (09:04)
[2021-01-07] MEDS: ENOXAPARIN 40 MG/0.4 ML SYRINGE SQ SCH (09:04)
[2021-01-07] MEDS: DOCUSATE SODIUM 100 MG CAPSULE PO SCH (09:04)
--- NOTE | 2021-01-07 11:47 | Emergency Department Note ---
Event Note Event Note: Hospitalist called and requested I evaluate the patient in the ICU due to potential need for intubation. I evaluated patient in person at 10:45 AM. She is on BiPAP resting comfortably and awakens to verbal stimuli. She appears somewhat diaphoretic. She has a pulse oxygen saturation of 97% at this time. She says she feels tired but does not have other physical complaints at this time. She does have an elevated respiratory rate but otherwise has no outward signs of increased work of breathing. I had an extensive discussion with Dr. Jolly and the ICU nurses at bedside. While I do understand the patient is in respiratory failure, she has known COVID-19. Given the significant increase mortality due to intubation and that patients with COVID often do well with high respiratory rates and relatively low oxygen saturation for extended periods of time, I do not think would be in the patient's best interest to intubate her at this time. I encouraged them to continue proning the patient as they have been. I agree with Dr. Jolly's assessment that the patient would be better served in a tertiary care center with more resuscitative capabilities and full-time intensivists. I said I would be happy to reassess the patient if there is any change in her condition or if prolonged transport for transfer would necessitate having a secure airway. Dr. Jolly is in agreement with the plan.
[2021-01-07] MEDS ORDERED: ENOXAPARIN 60 MG/0.6 ML SYRINGE SQ ONE (11:50)
--- NOTE | 2021-01-07 12:09 | Transfer Summary ---
Discharge Provider Provider Patient information: Note initiated : 01/07/21 at 11:57 am Service Date, if different from initiated Date: [] Patient: Francisca Samuel a 70 y/o F admitted on 01/05/21 for short of breath weakness. Transfer diagnosis * COVID-19 bilateral multifocal pneumonia-continue NIV. Currently on 75% FiO2. [place] 2 score 19, On remdesivir/dexamethasone, empiric antibiotic, thrombosis prophylaxis/coag and inflammatory markers elevated, maintain COVID- 19 precautions. prone ventilation as tolerated * Acute hypoxic respiratory failure secondary to Covid pneumonia/early ARDS. Continue NIV 70-80% FiO2. Gentle diuresis, repeat ABG 7. @ 75% FiO2 noninvasive ventilation * HLD * Hypothyroid * Anxiety disorder * Prophylaxis 1 mg per KG Lovenox Brief hospital course Ms. Samuel is a 70 year old F with history anxiety disorder/DJD/HLD who was diagnosed with Covid a week and a half ago. She continues to deteriorate with increasing exertional dyspnea progressing to dyspnea at rest. She presents to the ER for evaluation initial work-up was consistent with saturation in 30s. Patient was probably started on noninvasive ventilation. Chest imaging consistent with bilateral multifocal infiltrates consistent with Covid pneumonia. Patient was started on remdesivir/dexamethasone and subsequently hospitalist service was consulted. In light of critical nature of illness ICU bed was secured. At the time of my evaluation patient is on BiPAP 100% FiO2. Breathing at 25 pressure settings . She denies history of Covid vaccination. She endorses to fever, fatigue, malaise, weakness and loss of appetite but denies chest pain, vomiting abdominal pain diarrhea. 01/05-patient currently on 80% FiO2 BiPAP 18/10, ABG 7.5 10/01/48 on 80% FiO2 BiPAP. Remains critically ill and high risk mortality. Check interleukin- 6/Tocilizumab if available, continue prone ventilation . Sodium improved from 122-129, ferritin 1351, elevated LFTs, CRP 13, procalcitonin 0.19. Continue prone ventilation/intubated if worsening hypoxia/developing ARDS. Start diuresis. 01/06-patient remains critically ill however clinical improvement noted now 80% FiO2 on BiPAP with frequent prone ventilation. White count downtrending. Cur rently on remdesivir/dexamethasone, gentle diuresis to improve lung compliance. This morning was awake and nondistressed. Understands treatment plan. Discussed at length with patient's Nicolas on telephone patient's clinical status and further treatment plan. Interval chest imaging improved since previous day, elevated lactate dehydrogenase, CRP, ferritin. Continue close monitoring in ICU 01/07 patient demonstrating increased work of breathing. Now on 75% FiO2. White count 14.2, febrile, Repeat ABG 7.32/32/53 @ 75 Fio2. Febrile/tachypneic/worsening white count. Patient appears fatigued lethargic. Case discussed with patient's family and possible need for transfer to tertiary center in light of deteriorating overall status and need for expert management including prone ventilation/mechanical ventilation. At this time both ER physician Dr. Monroe and I felt that it is in the best interest of the patient to continue on noninvasive ventilation as mortality risk significantly increases if intubated. However proactively patient will need transfer to tertiary center should she deteriorate due to lack of available critical care resources at [facility]. Case discussed at [facility] intermediate teacher Dr. Valladares. Highly appreciate Dr. Valladares's help in facilitating transfer for further care. Case management coordinating air ambulance. We will check pretransfer blood gas/lactate and will reassess initiation of mechanical ventilation should she deteriorate, started on 1 mg/kg Lovenox. Date of admission: 01/05/21 00:22 Discharge date: 01/07/21 Primary care physician: Sabino Johnston Consults: 01/04/21 Consult to Physician [CONS] Stat Comment: Consulting Provider: Antony Jolly Reason For Exam: Physician to Consult Discharge Meds Discharge Medications Home Medications cholecalciferol (vitamin D3) 50 mcg (2,000 unit) capsule 2,000 unit PO BID #180 cap 09/23/16 [Rx Confirmed 01/05/21 Last Taken 01/04/21] alendronate 70 mg tablet 70 mg PO QWEEK #12 tab 12/04/17 [Rx Confirmed 01/05/21 Last Taken 12/31/20] levothyroxine 75 mcg tablet 75 mcg PO QDAY #90 tab 12/04/17 [Rx Confirmed 01/05/21 Last Taken 01/04/21] omeprazole 20 mg capsule,delayed release 20 mg PO QDAY #90 cap 12/04/17 [Rx Confirmed 01/05/21 Last Taken Unknown] venlafaxine 75 mg tablet 75 mg PO QDAY #90 tab 12/17/17 [Rx Confirmed 01/05/21 Last Taken 01/04/21] atorvastatin 80 mg PO QDAY 01/05/21 [History Confirmed 01/05/21 Last Taken 01/04/21] hydrocodone-chlorpheniramine 5 ml PO BID 01/05/21 [History Confirmed 01/05/21 Last Taken 01/04/21] COURSE Hospital Course Hospital course: . Discharge diagnosis: . Time Spent with Patient Time attestation: Total time spent providing and/or coordinating discharge services: EXAM Constitutional Vitals: Temp Pulse Resp BP Pulse Ox 100.3 F H 89 23 H 109/69 96 01/07/21 11:00 01/07/21 11:00 01/07/21 11:00 01/07/21 11:00 01/07/21 11:00 Discharge Data Data Completed and Pending Labs on day of discharge: Labs from last 24 hours 01/07/21 01/07/21 04:53 04:53 WBC 14.2 H RBC 4.20 Hgb 11.6 L Hct 35.2 L MCV 83.8 MCH 27.6 MCHC 33.0 RDW 14.3 Plt Count 284 MPV 9.5 Neut % (Auto) 92.2 H Lymph % (Auto) 4.6 L [place] % (Auto) 2.9 Eos % (Auto) 0 Baso % (Auto) 0.3 Lymph # (Auto) 0.65 L [place] # (Auto) 0.41 Eos # (Auto) 0 Baso # (Auto) 0.04 Absolute Neutrophils 13.05 H Differential Comment Sodium 136 Potassium 3.6 Chloride 98 Carbon Dioxide 29 Anion Gap 9.0 BUN 16 Creatinine 0.6 GFR Calculation 93 Glucose 117 H Uric Acid 5.5 Calcium 8.4 L Phosphorus 3.0 Magnesium 2.3 Total Bilirubin 0.4 Direct Bilirubin < 0.2 GGT 159 H AST 78 H ALT 86 H Alkaline Phosphatase 94 Lactate Dehydrogenase 796 H Total Protein 6.1 Albumin 3.2 Globulin 2.9 Albumin/Globulin Ratio 1.1 Triglycerides 151 H Preliminary micro results at discharge 01/04/21 22:05 Blood Culture - Preliminary Blood 01/04/21 21:51 Blood Culture - Preliminary Blood Discharge Plan Patient/Caregiver Discharge Instructions Activity: other Diet: NPO Instructions: COVID-19, Hypoxia (ED) Activity Restrictions/Additional Instructions: Critical care time spent on management of NIV/blood gas/imaging/lab interpretation, discussion with transfer center and accepting physician in excess of 105 minutes Prescriptions: No Action cholecalciferol (vitamin D3) 2,000 unit capsule 2,000 unit PO BID Qty: 180 RF: 3 alendronate [Fosamax] 70 mg tablet 70 mg PO QWEEK Qty: 12 RF: 3 levothyroxine 75 mcg tablet 75 mcg PO QDAY Qty: 90 RF: 3 omeprazole 20 mg capsule,delayed release(DR/EC) 20 mg PO QDAY Qty: 90 RF: 3 venlafaxine 75 mg tablet 75 mg PO QDAY Qty: 90 RF: 3 atorvastatin 80 mg tablet 80 mg PO QDAY RF: 0 hydrocodone-chlorpheniramine 10-8 mg/5 mL suspension,extended rel 12 hr 5 ml PO BID RF: 0 Follow Up Plan Follow up with: Sabino Johnston MD [Primary Care Provider] - Patient Disposition: [facility] Rehab Potential: Serious I certify that the patient requires SNF services: No Overall status at discharge: patient is not back to baseline Discharge Orders: Discharge Order (Routine); Ordered 01/07/21 Ordered By: Antony Jolly Discharge Comment: VSS on BiPap for [facility] transport.
[2021-01-07] MEDS: REMDESIVIR 100 MG in 0.9 % SODIUM CHLORIDE 250 ML IV SCH (16:04)
== END 2021-01-07 13:45 | disposition short-term general hospital (02) | DRG 177 ==
LOC: ED 21:18 → ICU 01-05 00:22
PROVIDERS: ADMIT Internal Medicine; ATTEND Internal Medicine